=== PATIENT | male | born 1970 | race Caucasian/White ===

== ENCOUNTER 2021-04-26 06:00 | Emergency (ER) | payer BC, OTHER ==
[2021-04-26 06:11] VITALS: BP 140/89; PULSE 72; O2SAT 98
[2021-04-26] MEDS ORDERED: TORAdol 30 mg Injection IM ONE (06:13)
[2021-04-26] MEDS ORDERED: TORAdol 30 mg Injection ONE (06:21)
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
== END 2021-04-26 07:03 | disposition home or self-care (01) ==
LOC: ED 06:00
DX: S33.9XXA Sprain of unspecified parts of lumbar spine and pelvis, initial encounter (principal); M54.50 Low back pain, unspecified; V89.2XXA Person injured in unspecified motor-vehicle accident, traffic, initial encounter; Y93.89 Activity, other specified; Y92.89 Other specified places as the place of occurrence of the external cause
CPT/HCPCS: 72100; 96372; 99284; J1885

== ENCOUNTER 2022-08-26 10:23 | Day surgery (SDC) | payer OTHER ==
--- NOTE | 2022-08-26 08:57 | HP ---
DATE OF SURGERY: 08/26/2022 HISTORY OF PRESENT ILLNESS: The patient is a 51-year-old coughing every time he puts something in his mouth. No prior upper endoscopy. No family history of esophageal problems. No prior surgery. Swallowing problems per the patient even with coffee. PAST MEDICAL HISTORY: Coughing and swallowing problems. PAST SURGICAL HISTORY: Heart ablation. MEDICATIONS: Provigil, gabapentin. ALLERGIES: NKDA. FAMILY HISTORY: Negative in regards to this problem. SOCIAL HISTORY: No smoking or alcohol abuse. REVIEW OF SYSTEMS: Fourteen systems reviewed. No chest pain or palpitations. Other systems negative or noncontributory as above and per preadmission questionnaire. PHYSICAL EXAMINATION: Height 6 feet. BMI 33.36. GENERAL: No acute distress. HEENT: Sclerae nonicteric. NECK: No JVD. CHEST: Equal excursion, nonlabored breathing. CVS: Regular rate and rhythm. ABDOMEN: Soft. No peritoneal signs. EXTREMITIES: No significant edema. NEURO: Alert, oriented, moving extremities symmetrically. No gross motor deficits noted. PSYCH: Appropriate mood and affect. SKIN: Dry. IMPRESSION: Coughing when he eats. He is in need of upper endoscopy to evaluate for reflux, esophagitis, narrowing or other etiology. General risk of bleeding or infection, risk of bowel injury or perforation, risk of missed or nondiagnosis or incomplete exam, possibly requiring barium swallow, other studies or procedures. He understands if we do not find etiology that he may need esophagogram, other work up with pH, manometry or other studies. He understands and agrees to the planned procedure, will proceed with EGD, possible biopsy as an outpatient.
[2022-08-26] MEDS ORDERED: Lactated Ringers 1,000 ML IV ONE (10:47)
[2022-08-26] MEDS ORDERED: DIPRIVAN 200 MG/20 ML IV ONE (12:15)
[2022-08-26] MEDS ORDERED: Versed 2 MG/2 ML Injection ONE (12:15)
[2022-08-26 13:16] VITALS: BP 147/79; PULSE 67; O2SAT 98
--- NOTE | 2022-08-27 07:46 | OP ---
SURGERY DATE/TIME: 08/26/2022 1217 PREOPERATIVE DIAGNOSIS: History of increased cough and some reflux. POSTOPERATIVE DIAGNOSES: 1) ASA Class II. 2) Esophagitis. PROCEDURES: 1) EGD with cold biopsy of antrum. 2) Cold biopsy distal esophagitis as well as small early gastric polyp. SURGEON: Dr. Tiago Lott. ANESTHESIA: MAC. ESTIMATED BLOOD LOSS: Minimal. INDICATIONS: As noted above. Risks and benefits explained in detail and not limited to and consent obtained. DESCRIPTION OF PROCEDURE AND FINDINGS: The patient is taken to the endoscopy room. MAC anesthesia introduced. After official time out and no disagreement with planned procedure, a bite block positioned. Video gastroscope easily passed down the esophagus through the patent pylorus to the third portion of the duodenum. Third, second and first portion of the duodenum grossly unremarkable. Back in the stomach he had some mild gastritis. Cold biopsy taken to evaluate for Helicobacter pylori. Good hemostasis noted. Tiny early polyp versus hyperplastic lesion removed with cold biopsy forceps this is in the fundus. Good hemostasis noted. On retroflex he did not have any significant signs of any hiatal hernia visible endoscopically. The scope is straightened. Gastroesophageal junction about 40 cm. Distal erosion distal esophagus, one column erosive esophagitis, cold biopsies are taken. There were a few little, tiny, little linear erosions a little bit higher up and scattered island erosions. No signs of any obvious masses. Cold biopsy is taken. The remainder of the esophagus no signs of any masses or mucosal lesions. The scope is withdrawn. The patient had some esophagitis. He was not on a proton pump inhibitor according to his family so I will write him for one. I will see him back in the office.
== END 2022-08-26 13:25 | disposition home or self-care (01) ==
LOC: SDC 10:23
PROVIDERS: ATTEND Surgery
DX: K20.90 Esophagitis, unspecified without bleeding (principal); K21.9 Gastro-esophageal reflux disease without esophagitis; R05.9 Cough, unspecified
CPT/HCPCS: J2250; J2704

== ENCOUNTER 2023-09-30 02:45 | Emergency (ER) | payer OTHER ==
[2023-09-30 02:51] VITALS: TEMP 97.3
--- NOTE | 2023-09-30 03:08 | ERPHSYRPT ---
- History of Present Illness Time Seen by Provider: 09/30/23 03:05 Source: patient Exam Limitations: no limitations Patient Subjective Stated Complaint: dizziness Triage Nursing Assessment: pt brought in by ems, pt alert and oriented x4, calm and cooperative. Pt was at work at the [employer], began shift at 9pm and started getting dizzy around 10pm. Pt denies any nausea, vomiting, loc, headache, numbness or tingling. Pt informed me that his b/p is always good and is running high tonight, which he feels, may be why he's feeling so dizzy. Physician History: 52yo m presents via EMS for dizziness that started 2h LAB REP while he was at work. 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 Pt states the dizziness is worse when changing position from lying to seated/seated to standing. Pt denies any head trauma or falls. Pt states closing his eyes improves the dizziness. Pt denies any vision changes, PINTO, vomiting, cp, soa. Pt reports hx of cardiac ablation for afib in 2019, does not take blood thinners currently. Timing/Duration: today Severity: moderate Associated Symptoms: nausea, No vomiting, No shortness of breath, No fever, No headaches, No syncope, No seizure, No weakness Allergies/Adverse Reactions: No Known Drug Allergies Allergy (Verified 09/30/23 03:01) Home Medications: Gabapentin 1,200 tab PO DAILY 08/12/22 [History] Modafinil 100 mg [Provigil 100MG Tablet] 1 tab PO UD 08/12/22 [History] Hx Tetanus, Diphtheria Vaccination/Date Given: Yes Hx Influenza Vaccination/Date Given: No Hx Pneumococcal Vaccination/Date Given: No Travel Risk - International Travel Have you traveled outside of the country in past 3 weeks: No - Emerging Infectious Disease Are you exhibiting symptoms associated with any current EIDs: No - Review of Systems Constitutional: No Symptoms Eyes: No Vision Changes, No Double Vision Ears, Nose, & Throat: No Ear Pain, No Hearing Changes, No Tinnitus Respiratory: No Symptoms Cardiac: No Chest Pain, No Palpitations, No Syncope Abdominal/Gastrointestinal: No Symptoms Musculoskeletal: No Symptoms Neurological: Dizziness, No Focal Weakness, No Headache, No Paralysis, No Parasthesia, No Sensory Changes, No Speech Changes - Past Medical History Pertinent Past Medical History: Yes Neurological History: No Pertinent History ENT History: No Pertinent History Cardiac History: Arrhythmia Respiratory History: No Pertinent History Endocrine Medical History: No Pertinent History Musculoskeletal History: Fractures GI Medical History: No Pertinent History History: No Pertinent History Psycho-Social History: No Pertinent History Male Reproductive Disorders: No Pertinent History - Past Surgical History Past Surgical History: Yes Neuro Surgical History: No Pertinent History Cardiac: Other Gastrointestinal: No Pertinent History Genitourinary: No Pertinent History Musculoskeletal: No Pertinent History Male Surgical History: No Pertinent History Other Surgical History: heart ablation - Social History Smoking Status: Never smoker Exposure to second hand smoke: No Drug Use: none Patient Lives Alone: No - Nursing Vital Signs Nursing Vital Signs: Initial Vital Signs Temperature 97.3 F 09/30/23 02:50 Pulse Rate 60 09/30/23 02:50 Respiratory Rate 18 09/30/23 02:50 Blood Pressure 178/106 09/30/23 02:50 O2 Sat by Pulse Oximetry 96 09/30/23 02:50 Pain Scale Pain Intensity 0 - Physical Exam General Appearance: no apparent distress Eye Exam: PERRL/EOMI, eyes nml inspection Ears, Nose, Throat Exam: normal ENT inspection, TMs normal, pharynx normal, moist mucous membranes Neck Exam: normal inspection, non-tender, No meningismus, No midline tenderness Respiratory Exam: normal breath sounds, lungs clear, airway intact, No chest ten derness, No respiratory distress Cardiovascular Exam: regular rate/rhythm, normal heart sounds, normal peripheral pulses Gastrointestinal/Abdomen Exam: soft, normal bowel sounds Neurologic Exam: alert, oriented x 3, cooperative, silk finisher II-XII nml as tested, normal mood/affect, nml cerebellar function, sensation nml, No motor deficits, No sensory deficit, No disoriented, No confusion, No motor weakness, No facial droop, No slurred speech SpO2 Interpretation: normal SpO2: 96 O2 Delivery: Room Air - Course EKG Interpreted by Me: RATE (63), Sinus Rhythm, NORMAL ST-T, Other (qtcb [id number]; not suggestive of ischemia) Ordered Tests: Active Orders 24 hr Category Date Time Status EKG-ER Only STAT Care 09/30/23 03:39 Active HEAD WITHOUT CONTRAST [CT] Stat Exams 09/30/23 03:40 Completed CBC W DIFF Stat Lab 09/30/23 03:39 Completed CMP Stat Lab 09/30/23 03:39 Completed MAGNESIUM Stat Lab 09/30/23 03:39 Completed TROPONIN Q4H Lab 09/30/23 03:45 Completed TROPONIN Q4H Lab 09/30/23 07:45 Ordered TROPONIN Q4H Lab 09/30/23 11:45 Ordered UA W/RFX UR CULTURE Stat Lab 09/30/23 04:29 Completed Urine Triage Profile Stat Lab 09/30/23 04:29 Completed Medication Summary Discontinued Medications Generic Name Dose Route Start Last Admin Trade Name Freq PRN Reason Stop Dose Admin Scopolamine HBr 1.5 mg 09/30/23 03:39 09/30/23 04:01 Scopolamine 1.5 Mg Patch TOP 09/30/23 03:40 1.5 mg STAT ONE Administration Lab/Rad Data: Laboratory Result Diagrams 09/30/23 03:39 09/30/23 03:39 Laboratory Results 09/30/23 09/30/23 09/30/23 Range/Units 04:29 04:29 03:45 WBC (4.0-10.5) x10^3/uL RBC (4.1-5.6) x10^6/uL Hgb (12.5-18.0) g/dL Hct (42-50) % MCV (78-100) fL MCH (26-32) pg MCHC (32-36) g/dL RDW (11.5-14.0) % Plt Count (150-450) x10^3/uL MPV (7.5-11.0) fL Gran % (36.0-66.0) % Immature Gran % (Auto) (0.00-0.4) % Nucleat RBC Rel Count (0.00-0.1) % Eos # (Auto) (0-0.5) x10^3/uL Immature Gran # (Auto) (0.00-0.03) x10^3u/L Absolute Lymphs (auto) (1.0-4.6) x10^3/uL Absolute Monos (auto) (0.0-1.3) x10^3/uL Absolute Nucleated RBC (0.00-0.01) x10^3u/L Lymphocytes % (24.0-44.0) % Monocytes % (0.0-12.0) % Eosinophils % (0.00-5.0) % Basophils % (0.0-0.4) % Absolute Granulocytes (1.4-6.9) x10^3/uL Basophils # (0-0.4) x10^3/uL Sodium (135-145) mmol/L Potassium (3.5-5.1) mmol/L Chloride (98-107) mmol/L Carbon Dioxide (22-30) mmol/L Anion Gap (5-15) MEQ/L BUN (9-20) mg/dL Creatinine (0.66-1.25) mg/dL Estimated GFR ML/MIN Glucose (74-106) mg/dL Calcium (8.4-10.2) mg/dL Magnesium (1.6-2.3) mg/dL Total Bilirubin (0.2-1.3) mg/dL AST (17-59) U/L ALT (0-50) U/L Alkaline Phosphatase (38-126) U/L Troponin I < 0.012 (0.000-0.033) ng/mL Serum Total Protein (6.3-8.2) g/dL Albumin (3.5-5.0) g/dL Urine Color Yellow (Yellow) Urine Appearance Clear (Clear) Urine pH 5.5 (4.6-8.0) Ur Specific [place] 1.025 (1.005-1.030) Urine Protein Negative (Negative) Urine Glucose (UA) Negative (Negative) mg/dL Urine Ketones Negative (Negative) Urine Blood Negative (Negative) Urine Nitrite Negative (Negative) Urine Bilirubin Negative (Negative) Urine Urobilinogen 1.0 A (0.2) mg/dL Ur Leukocyte Esterase Negative (Negative) U Hyaline Cast (Auto) NONE SEEN (0-2) /LPF Urine Microscopic RBC 0-2 (0-5) /HPF Urine Microscopic WBC 0-2 (0-5) /HPF Ur Epithelial Cells None Seen (None Seen) /HPF Urine Bacteria None Seen (None Seen) /HPF Urine Culture Reflexed NO (NO) Urine Opiates Level NEGATIVE (NEGATIVE) Ur Methadone NEGATIVE (NEGATIVE) Urine Barbiturates NEGATIVE (NEGATIVE) Ur Phencyclidine (PCP) NEGATIVE (NEGATIVE) Urine Amphetamine NEGATIVE (NEGATIVE) U Benzodiazepine Level NEGATIVE (NEGATIVE) Urine Cocaine NEGATIVE (NEGATIVE) Urine Marijuana (THC) NEGATIVE (NEGATIVE) 09/30/23 09/30/23 Range/Units 03:39 03:39 WBC 6.0 (4.0-10.5) x10^3/uL RBC 5.70 H (4.1-5.6) x10^6/uL Hgb 16.1 (12.5-18.0) g/dL Hct 47.7 (42-50) % MCV 83.7 (78-100) fL MCH 28.2 (26-32) pg MCHC 33.8 (32-36) g/dL RDW 12.6 (11.5-14.0) % Plt Count 190 (150-450) x10^3/uL MPV 9.1 (7.5-11.0) fL Gran % 62.2 (36.0-66.0) % Immature Gran % (Auto) 1.0 H (0.00-0.4) % Nucleat RBC Rel Count 0.0 (0.00-0.1) % Eos # (Auto) 0.15 (0-0.5) x10^3/uL Immature Gran # (Auto) 0.06 H (0.00-0.03) x10^3u/L Absolute Lymphs (auto) 1.58 (1.0-4.6) x10^3/uL Absolute Monos (auto) 0.46 (0.0-1.3) x10^3/uL Absolute Nucleated RBC 0.00 (0.00-0.01) x10^3u/L Lymphocytes % 26.4 (24.0-44.0) % Monocytes % 7.7 (0.0-12.0) % Eosinophils % 2.5 (0.00-5.0) % Basophils % 0.2 (0.0-0.4) % Absolute Granulocytes 3.72 (1.4-6.9) x10^3/uL Basophils # 0.01 (0-0.4) x10^3/uL Sodium 142 (135-145) mmol/L Potassium 3.9 (3.5-5.1) mmol/L Chloride 106 (98-107) mmol/L Carbon Dioxide 25 (22-30) mmol/L Anion Gap 13.8 (5-15) MEQ/L BUN 23 H (9-20) mg/dL Creatinine 1.45 H (0.66-1.25) mg/dL Estimated GFR 58.0 ML/MIN Glucose 117 H (74-106) mg/dL Calcium 9.5 (8.4-10.2) mg/dL Magnesium 2.0 (1.6-2.3) mg/dL Total Bilirubin 0.30 (0.2-1.3) mg/dL AST 49 (17-59) U/L ALT 85 H (0-50) U/L Alkaline Phosphatase 119 (38-126) U/L Troponin I (0.000-0.033) ng/mL Serum Total Protein 8.1 (6.3-8.2) g/dL Albumin 4.4 (3.5-5.0) g/dL Urine Color (Yellow) Urine Appearance (Clear) Urine pH (4.6-8.0) Ur Specific [place] (1.005-1.030) Urine Protein (Negative) Urine Glucose (UA) (Negative) mg/dL Urine Ketones (Negative) Urine Blood (Negative) Urine Nitrite (Negative) Urine Bilirubin (Negative) Urine Urobilinogen (0.2) mg/dL Ur Leukocyte Esterase (Negative) U Hyaline Cast (Auto) (0-2) /LPF Urine Microscopic RBC (0-5) /HPF Urine Microscopic WBC (0-5) /HPF Ur Epithelial Cells (None Seen) /HPF Urine Bacteria (None Seen) /HPF Urine Culture Reflexed (NO) Urine Opiates Level (NEGATIVE) Ur Methadone (NEGATIVE) Urine Barbiturates (NEGATIVE) Ur Phencyclidine (PCP) (NEGATIVE) Urine Amphetamine (NEGATIVE) U Benzodiazepine Level (NEGATIVE) Urine Cocaine (NEGATIVE) Urine Marijuana (THC) (NEGATIVE) - Progress Progress: improved Progress Note: 09/30/23 03:54 orthostatic BPs not significant 09/30/23 06:10 moderate improvement in dizziness w/ scopolamine patch pt has been persistently hypertensive - states this is abnormal for him pt able to ambulate w/o assistance Den Hallpike inconclusive on multiple attempts labs largely unremarkable - no significant electrolyte abnormalities, no anemia, trop wnl, CT showed: No acute intracranial pathology. No significant interval change from prior CT, Mucosal thickening in the bilateral ethmoid and frontal sinuses along with the left maxillary sinus, suggestive of sinusitis. No significant interval changes. dizziness caused by sinusitis vs positional vertigo will treat sinusitis w/ augmentin twice daily for 7days along w/ flonase daily for inflammation of sinuses antivert 25mg twice a day sent for dizziness important to follow up with PCP outpatient (Dr Templeton) to continue workup return to ED if: dizziness worsens, develop vision changes, start having falls, develop chest pain, develop PINTO that does not resolve w/ pain medications Given work note through 10/03/23 09/30/23 06:11 Medical Desision Making - Diagnostic Testing Diagnostic test were ordered, analyzed, and reviewed by me: Yes Radiological Interpretation: Reviewed by me, Teleradiologist Report - Risk of complications Low Risk: Low risk of morbidity from additional dx testing or treatment - Departure Departure Disposition: Home Clinical Impression: Dizziness Sinusitis Qualifiers: Sinusitis location: ethmoidal Chronicity: unspecified Qualified Code(s): J32.2 - Chronic ethmoidal sinusitis Hypertension Qualifiers: Hypertension type: unspecified Qualified Code(s): I10 - Essential (primary) hypertension Condition: Stable Critical Care Time: No Additional Instructions: dizziness caused by sinusitis vs positional vertigo will treat sinusitis w/ augmentin twice daily for 7days along w/ flonase daily for inflammation of sinuses antivert 25mg twice a day sent for dizziness important to follow up with PCP outpatient (Dr Templeton) to continue workup return to ED if: dizziness worsens, develop vision changes, start having falls, develop chest pain, develop PINTO that does not resolve w/ pain medications Given work note through 10/03/23 Prescriptions: Meclizine HCl 25 mg [Antivert 25 mg] 25 mg PO BID 5 Days #10 tablet Amox Tr/Potass Clav. 875 mg [Augmentin 875-125 Tablet] 1 each PO BID 7 Days #14 tablet Fluticasone Propionate [Flonase Nasal] 16 gm NS DAILY 30 Days #1 [facility] [place]
[2023-09-30 03:52] LABS: ALBUMIN 4.4 g/dL (3.5-5.0); ANION GAP 13.8 MEQ/L (5-15); BILIRUBIN,TOTAL 0.3 mg/dL (0.2-1.3); Calcium 9.5 mg/dL (8.4-10.2); Creatinine 1 1.45 mg/dL (0.66-1.25); Potassium 3.9 mmol/L (3.5-5.1); Total Protein 8.1 g/dL (6.3-8.2)
[2023-09-30] MEDS: Transderm Scop 1.5MG Patch TOP ONE (04:01)
[2023-09-30 04:18] LABS: Absolute Neutrophil Ct (ANC) 3.72 x10^3/uL (1.4-6.9); BASOPHIL % 0.2 % (0.0-0.4); Basophil (Absolute #) 0.01 x10^3/uL (0-0.4); Eosinophil % 2.5 % (0.00-5.0); Eosinophil (Absolute #) 0.15 x10^3/uL (0-0.5); Hematocrit 47.7 % (42-50); Hemoglobin 16.1 g/dL (12.5-18.0); IMMATURE GRAN # 0.06 x10^3u/L (0.00-0.03); Lymphocyte (Absolute #) 1.58 x10^3/uL (1.0-4.6); Lymphocytes % 26.4 % (24.0-44.0); Mean Cell Volume 83.7 fL (78-100); Mean Corpuscular Hemoglobin 28.2 pg (26-32); Mean Corpuscular Hgb Concent. 33.8 g/dL (32-36); Mean Platelet Volume 9.1 fL (7.5-11.0); Monocyte (Absolute #) 0.46 x10^3/uL (0.0-1.3); Monocytes % 7.7 % (0.0-12.0); Neutrophil % 62.2 % (36.0-66.0); Platelet Count 190 x10^3/uL (150-450); Red Cell Distribution Width 12.6 % (11.5-14.0)
[2023-09-30 04:57] LABS: Appearance Clear (Clear); Bacteria None Seen /HPF (None Seen); Bilirubin Negative (Negative); Blood Negative (Negative); Epithelial Cells None Seen /HPF (None Seen); Glucose, Urine Negative (Negative); Hyaline Casts NONE SEEN /LPF (0-2); Ketones Negative (Negative); Leukocyte Esterase Negative (Negative); Nitrite Negative (Negative); Ph 5.5 (4.6-8.0); Protein,Urine Dip Negative (Negative); RBC 0-2 /HPF (0-5); Specific Gravity 1.025 (1.005-1.030); WBC 0-2 /HPF (0-5)
[2023-09-30 04:58] LABS: ADD URINE CULTURE? NO (NO)
[2023-09-30 05:08] LABS: Barbiturate,Urine NEGATIVE (NEGATIVE); Benzodiazepine,Urine NEGATIVE (NEGATIVE); Cocaine,Urine NEGATIVE (NEGATIVE); Methadone,Urine NEGATIVE (NEGATIVE); Opiate,Urine NEGATIVE (NEGATIVE); PCP,Urine NEGATIVE (NEGATIVE); THC,Urine NEGATIVE (NEGATIVE)
[2023-09-30 05:11] LABS: Amphetamine,Urine NEGATIVE (NEGATIVE)
--- NOTE | 2023-09-30 05:20 | XRAY ---
CLINICAL HISTORY: dizziness COMPARISON: 10/10/2011 TECHNIQUE: Axial sections of CT head examination were obtained without administration of intravenous contrast. Reformatted coronal and sagittal images were acquired. One of the following dose reduction techniques were utilized for this exam: Automated exposure control, adjustment of the mA and/or kV according to patient size, and use of iterative reconstruction. FINDINGS: Darnell-white matter differentiation is intact. Visualized brain parenchyma appears unremarkable. No intracranial hemorrhage or established territorial infarction. No mass effect, midline shift or hydrocephalus. Pineal region and falx calcifications seen. Bilateral cerebellopontine angles are unremarkable. Mucosal thickening in the bilateral ethmoid and frontal sinuses along with the left maxillary sinus. Bilateral mastoid air cells appear unremarkable. No acute calvarial abnormality. IMPRESSION: No acute intracranial pathology. No significant interval change from prior CT, Mucosal thickening in the bilateral ethmoid and frontal sinuses along with the left maxillary sinus, suggestive of sinusitis. No significant interval changes. Electronically Signed by: Rai De Dios MD. (09/30/2023 05:16:34 EDT)
[2023-09-30 06:09] VITALS: O2SAT 96
[2023-09-30 06:10] VITALS: BP 145/93; PULSE 63; RESP 15
== END 2023-09-30 06:35 | disposition home or self-care (01) ==
LOC: ED 02:45
DX: J32.2 Chronic ethmoidal sinusitis (principal); I10 Essential (primary) hypertension; R42 Dizziness and giddiness; Z79.899 Other long term (current) drug therapy
CPT/HCPCS: 36000; 36415; 70450; 80053; 80307; 81001; 83735; 84484; 85025; 93005; 99284; A9270-GY

== ENCOUNTER 2024-01-13 17:55 | Emergency (ER) | payer OTHER ==
[2024-01-13 18:06] VITALS: TEMP 97.2; O2SAT 98
[2024-01-13] MEDS ORDERED: XYLOCAINE 1% HCL 20 ML MDV ONE (18:27)
[2024-01-13] MEDS ORDERED: BACIGUENT PACKET ONE (18:49)
--- NOTE | 2024-01-13 18:54 | ERPHSYRPT ---
- History of Present Illness Time Seen by Provider: 01/13/24 18:54 Source: patient Exam Limitations: no limitations Patient Subjective Stated Complaint: patient came in after a fall in his shop causing a laceration to the right lateral forehead. rates pain at 9/10 Triage Nursing Assessment: patient brought in ER by family, pt suffered a fall in his shop, right 2x2 lateral forehead laceration, pain 9/10, vitals wnl, pulses are normal, cap refil normal, skin n/w/d, denies LOC, has nausea, denies any other injuries, doesn't appear to be in distress Physician History: 53-year-old male presents to our ED for evaluation of a trip and fall. Patient reports he was in his shop. Patient tripped fell and hit his head against what he believes could have been a toolbox of some sort. Injury occurred just prior to arrival. Pain described as an ache that is localized. No radiation. Pain worse with movement. Patient felt nauseous at the time of the injury. Nausea has since resolved. No neck pain. C-spine cleared clinically. No LOC the fall was mechanical and not associated with any neuro cardiovascular symptomology. No associated chest pain or shortness of breath. No nausea vomiting or diaphoresis. No numbness tingling or weakness. Patient otherwise feels well. He voices no other complaints or concerns at this time. Portions of this note were created with voice recognition technology. There may be grammatical, spelling, punctuation or sound alike errors Timing/Duration: today Severity: moderate Modifying Factors: Improves With: nothing Associated Symptoms: denies symptoms Allergies/Adverse Reactions: No Known Drug Allergies Allergy (Verified 01/13/24 18:06) Home Medications: Gabapentin 1,200 tab PO DAILY 08/12/22 [History] Modafinil 100 mg [Provigil 100MG Tablet] 200 mg PO DAILY 08/12/22 [History] Hydrocodone/Acetaminophen [Hydrocodone-Acetamin 5-325 mg] 1 each PO DAILY 01/13/24 [History] Lisinopril 5 mg [Zestril 5 MG] 5 mg PO DAILY 01/13/24 [History] Hx Tetanus, Diphtheria Vaccination/Date Given: Yes Hx Influenza Vaccination/Date Given: No Hx Pneumococcal Vaccination/Date Given: No Travel Risk - International Travel Have you traveled outside of the country in past 3 weeks: No - Emerging Infectious Disease Are you exhibiting symptoms associated with any current EIDs: No - Review of Systems Constitutional: No Symptoms, No Fever, No Chills Eyes: No Symptoms Ears, Nose, & Throat: No Symptoms Respiratory: No Symptoms, No Cough, No Dyspnea Cardiac: No Symptoms, No Chest Pain, No Edema, No Syncope Abdominal/Gastrointestinal: No Symptoms, No Abdominal Pain, No Nausea, No Vomiting, No Diarrhea Genitourinary Symptoms: No Symptoms, No Dysuria Musculoskeletal: No Symptoms, No Back Pain, No Neck Pain Skin: No Symptoms, No Rash Neurological: No Symptoms, No Dizziness, No Focal Weakness, No Sensory Changes Psychological: No Symptoms Endocrine: No Symptoms Hematologic/Lymphatic: No Symptoms Immunological/Allergic: No Symptoms All Other Systems: Reviewed and Negative - Past Medical History Pertinent Past Medical History: Yes Neurological History: No Pertinent History ENT History: No Pertinent History Cardiac History: Arrhythmia Respiratory History: No Pertinent History Endocrine Medical History: No Pertinent History Musculoskeletal History: Fractures GI Medical History: No Pertinent History History: No Pertinent History Psycho-Social History: No Pertinent History Male Reproductive Disorders: No Pertinent History - Past Surgical History Past Surgical History: Yes Neuro Surgical History: No Pertinent History Cardiac: Other Gastrointestinal: No Pertinent History Genitourinary: No Pertinent History Musculoskeletal: No Pertinent History Male Surgical History: No Pertinent History Other Surgical History: heart ablation - Social History Smoking Status: Never smoker Exposure to second hand smoke: No Drug Use: none Patient Lives Alone: No - Social Determinants of Health Will the patient participate in the screening: Yes Do you worry about a steady place to live?: No Do you have any problems with any of the following?: No known problems In the past 12 months,have you had to go without utilities?: No Transportation Issues: No Has anyone in your support network made you feel unsafe?: No Have you or anyone in your house had to go without enough: No - Nursing Vital Signs Nursing Vital Signs: Initial Vital Signs Temperature 97.2 F 01/13/24 17:57 Pulse Rate 81 01/13/24 17:57 Blood Pressure 129/84 01/13/24 17:57 O2 Sat by Pulse Oximetry 98 01/13/24 17:57 Pain Scale Pain Intensity 9 - Physical Exam General Appearance: no apparent distress, alert Eye Exam: PERRL/EOMI, eyes nml inspection Ears, Nose, Throat Exam: normal ENT inspection, TMs normal, pharynx normal, moist mucous membranes Neck Exam: normal inspection, non-tender, supple, full range of motion Respiratory Exam: normal breath sounds, lungs clear, airway intact, No respiratory distress Cardiovascular Exam: regular rate/rhythm, normal heart sounds, normal peripheral pulses Gastrointestinal/Abdomen Exam: soft, normal bowel sounds, No tenderness, No mass Back Exam: normal inspection, normal range of motion, No CVA tenderness, No vertebral tenderness Extremity Exam: normal inspection, normal range of motion, pelvis stable Neurologic Exam: alert, oriented x 3, cooperative, refinery technician II-XII nml as tested, normal mood/affect, nml cerebellar function, nml station & gait, sensation nml, other (Neurologic exam normal as tested), No motor deficits, No sensory deficit, No motor weakness, No abnormal cerebellar tests Skin Exam: normal color, warm, dry, No rash Lymphatic Exam: No adenopathy SpO2 Interpretation: normal SpO2: 98 O2 Delivery: Room Air Procedures - Laceration/Wound Repair Right Eye Time of Procedure: 18:30 Wound Location: Right Wound Length (cm): 2 Wound's Depth, Shape: superficial Wound Explored: clean Irrigated: Yes Hibiclens Prep: Yes Anesthesia: local, 1% Lidocaine Volume Anesthetic (ccs): 4 Wound Debrided: No debridement required Wound Repaired With: sutures Suture Size/Type: 5-0, ethilon Number of Sutures: 5 Layer Closure?: No Sterile Dressing Applied?: Yes Splint Applied?: No - Course Nursing assessment & vital signs reviewed: Yes - CT Exams Head CT Interpretation: Tele-radiologist Report (Normal head) Maxillofacial Bones CT Interpretation: Tele-radiologist Report (No cramps. Mild right supraorbital soft tissue swelling and mild bilateral paranasal sinus disease otherwise normal facial bones) Ordered Tests: Active Orders 24 hr Category Date Time Status FACIAL BONES WO CONTRAST [CT] Stat Exams 01/13/24 18:03 Taken HEAD WITHOUT CONTRAST [CT] Stat Exams 01/13/24 18:03 Taken Medication Summary Discontinued Medications Generic Name Dose Route Start Last Admin Trade Name Freq PRN Reason Stop Dose Admin Bacitracin Zinc Confirm 01/13/24 18:49 Bacitracin Packet 1 Each Pckt Administered 01/13/24 18:50 Dose 1 each .ROUTE .STK-MED ONE Lidocaine HCl 5 ml 01/13/24 18:28 Lidocaine Hcl 1% 20 Ml Mdv 20 Ml Ml IJ 01/13/24 18:29 STAT ONE Lidocaine HCl Confirm 01/13/24 18:27 Lidocaine Hcl 1% 20 Ml Mdv 20 Ml Ml Administered 01/13/24 18:28 Dose 5 ml .ROUTE .STK-MED ONE - Progress Progress: improved Progress Note: Patient is a 53-year-old male presents to our ED for evaluation post trip and fall. The fall was mechanical. Patient hit his head and suffered a laceration. Laceration measures 2 cm. Neurologic exam within normal limits physical exam otherwise unremarkable. Cervical spine cleared clinically. CT head facial bones are both negative for acute intracranial pathology. Soft tissue swelling and sinus disease observed. Patient reassessed. He feels well. Pain improved with lidocaine injection to the laceration site. Patient declined Zofran and additional pain medication. Patient states he is ready for discharge. He will follow-up with his primary care doctor within 48 hours for reevaluation. Sutures are to be removed in 1 week's time. at bedside. They voiced no other complaints or concerns at this time. Portions of this note were created with voice recognition technology. There may be grammatical, spelling, punctuation or sound alike errors Complexity problem addressed is moderate acute complicated no critical care time. Complex of data reviewed and analyzed is moderate. CT scan ordered reviewed and correlated clinically with history and physical exam. Risk of complication and or risk of morbidity/mortality patient management is low. Patient does not require antibiotic therapy for this laceration. Vital stable. Time spent to discharge patient approximately 15 minutes. Plan of care established for shared decision making. No social determinants of health present impede follow-up. Portions of this note were created with voice recognition technology. There may be grammatical, spelling, punctuation or sound alike errors 01/13/24 19:47 Counseled pt/family regarding: diagnosis, need for follow-up, rad results - Departure Departure Disposition: Home Clinical Impression: Fall, Laceration, Paranasal sinus disease, Concussion Condition: Stable Critical Care Time: No Referrals: DEVIKA BRUMFIELD MD [Primary Care Provider] - Follow up/PCP as directed Additional Instructions: Discharge/Care Plan SANTI MACIAS was seen on 01/13/24 in the Emergency Room. The patient was counseled regarding Diagnosis,Lab results, Imaging studies, need for follow up and when to return to the Emergency Room. Prescriptions given: Discharge Note I have spoken with the patient and/or caregivers. I have explained the patient's condition, diagnosis and treatment plan based on the information available to me at this time. I have answered the patient's and/or caregiver's questions and addressed any concerns. The patient and/or caregivers have as good understanding of the patient's diagnosis, condition and treatment plan as can be expected at this point. The vital signs have been stable. The patient's condition is stable and appropriate for discharge from the emergency department. The patient will pursue further outpatient evaluation with the primary care physician or other designated or consulting physician as outlined in the discharge instructions. The patient and/or caregivers are agreeable to this plan of care and follow-up instructions have been explained in detail. The patient and/or caregivers have received these instruction. The patient/and or caregivers are aware that any significant change in condition or worsening of symptoms should prompt an immediate return to this or the closest emergency department or call 911.
[2024-01-13] MEDS: XYLOCAINE 1% HCL 20 ML MDV IJ ONE (19:52)
[2024-01-13] MEDS: BACIGUENT PACKET TP ONE (19:53)
[2024-01-13 20:03] VITALS: BP 152/97; PULSE 86; RESP 20
--- NOTE | 2024-01-14 08:46 | XRAY ---
Indication: Status post fall. Right supraorbital laceration. Multiple contiguous axial images obtained through the head without contrast. Comparison: September 30, 2023 Normal-appearing brain parenchyma, ventricles, and bony calvarium. Again mild mucosal thickening both ethmoid and frontal sinuses without fluid leveling. Mastoid air cells are clear. Impression: Continued normal CT head without contrast exam with incidental paranasal sinus disease.
--- NOTE | 2024-01-14 08:50 | XRAY ---
Indication: Status post fall. Right supraorbital laceration. Multiple contiguous axial images obtained through the facial bones. Sagittal and coronal reformatted images obtained. Comparison: None A few bilateral dental amalgams produces beam artifact. Mild right supraorbital soft tissue swelling/laceration. Fracture left nasal bone without overlying soft tissue swelling favoring old fracture. No acute fracture, suspicious bony lesions, or radiopaque foreign body. Orbits including roof, moreno, and floors intact. Visualized cervical spine demonstrates minimal/mild multilevel degenerative changes. Mild mucosal thickening both ethmoid/both frontal and lesser degree both maxillary sinuses without fluid leveling. Previous bilaterally maxillary sinus antrectomy surgery. Nasal passages clear with minimal nasal septal deviation to the right. Visualized noncontrasted soft tissues unremarkable. Impression: 1. Right supraorbital soft tissue swelling/laceration. Negative acute fracture. 2. Paranasal sinus disease. 3. Chronic findings including cervical degenerative changes, nasal septal deviation, and probable old left nasal bone fracture.
== END 2024-01-13 20:00 | disposition home or self-care (01) ==
LOC: ED 17:55
DX: S01.111A Laceration without foreign body of right eyelid and periocular area, initial encounter (principal); S06.0X0A Concussion without loss of consciousness, initial encounter; W01.198A Fall on same level from slipping, tripping and stumbling with subsequent striking against other object, initial encounter; R51.9 Headache, unspecified; Z79.891 Long term (current) use of opiate analgesic; Z79.899 Other long term (current) drug therapy
CPT/HCPCS: 12011; 70450; 70486; 96372; 99283; A9270-GY